=== PATIENT | male | born 1990 | race Caucasian/White ===

== ENCOUNTER 2017-12-26 18:04 | Emergency (ER) | payer MEDICAID ==
[~2017-12-26] VITALS: Ht 188 cm; Wt 99.8 kg
[2017-12-26 18:22] VITALS: BP_SYST 142
[2017-12-26] MEDS ORDERED: LIDOCAINE 1%, 20 ML MDV 20 ML ONE (20:13)
[2017-12-26] MEDS ORDERED: LIDOCAINE MPF 1% 50 MG/5 ML AMP INJ ONE (20:15)
[2017-12-26] MEDS ORDERED: DIPH-TET-PERTUS Vaccine 0.5 ML VIAL (ADACEL) I.M. ONE (20:45)
[2017-12-26 21:00] VITALS: BP_SYST 132
== END 2017-12-26 21:00 | disposition home or self-care (01) ==
LOC: SED 18:04
DX: S15.01 Minor laceration of carotid artery (principal); F42.9 Obsessive-compulsive disorder, unspecified; V87.8XXA Person injured in other specified noncollision transport accidents involving motor vehicle (traffic), initial encounter; Y93.55 Activity, bike riding; Y92.828 Other wilderness area as the place of occurrence of the external cause; Y99.8 Other external cause status
CPT/HCPCS: 12002; 73080; 90471; 90715; 99284; J2001 ×2